=== PATIENT | female | born 1965 | race Caucasian/White ===

== ENCOUNTER → 2017-10-03 | Outpatient (CLI) | payer BC | LOC: M PAIN 09:30 | DX: M79.1 Myalgia (principal); M54.2 Cervicalgia; E03.9 Hypothyroidism, unspecified; G25.81 Restless legs syndrome; Z79.899 Other long term (current) drug therapy; Z88.5 Allergy status to narcotic agent | CPT/HCPCS: G0463 ==

== ENCOUNTER 2018-06-24 09:36 | Day surgery (SDC) | payer BC ==
[~2018-06-24 09:36] MED LIST: ACETAMINOPHEN 325 MG TAB PO; MIDAZOLAM INJ 2 MG/2 ML VIAL (J2250) As Ordered; PHENYLEPHRINE HCL 10 % OPHTH. SOL 5ML OD; fentaNYL 100 MCG/2 ML INJECTION (J3010) As Ordered
[2018-06-24] MEDS: OFLOXACIN 0.3 % (OCUFLOX) OPTH SOL 5ML OD (10:18)
[2018-06-24] MEDS: TROPICAMIDE 1% OPHTH SOLN 2ML OD (10:18)
[2018-06-24] MEDS: PHENYLEPHRINE 2.5% OPHTH SOL 2ML OD (10:19)
[2018-06-24] MEDS: LIDOCAINE 3.5 % 1ML OPHTH TOPICAL GEL OU (10:19)
[2018-06-24] MEDS: CYCLOPENTOLATE 2% OPHTH SOLN 2ML BTL OD (10:19)
[2018-06-24] MEDS: POVIDONE-IODINE 5% OPHTH PREP SOL 30ML As Ordered (11:27)
[2018-06-24] MEDS: MOXIFLOXACIN IN BSS 0.25MG/0.25ML INTRACAMERAL INJ (OR EYE ONLY)(J2280) As Ordered (11:27)
[2018-06-24] MEDS: TRIAMCINOLONE PRES FR 40 MG/ML 1ML(TRIESENCE)(OR EYE ONLY)(J3300 PER 1MG) As Ordered (11:27)
[2018-06-24] MEDS: HEALON DUET (HEALON 10MG/ML 0.55ML & HEALON ENDOCOAT 30MG/ML 0.85ML) As Ordered (11:27)
[2018-06-24] MEDS: LIDOCAINE 1% SDV 5 ML VIAL As Ordered (11:27)
[2018-06-24] MEDS: BSS with VANC/TOB/EPI for EYE CASES IR (11:28)
[2018-06-24] MEDS ORDERED: TRIMETHOBENZAMIDE 300 MG CAP PO (12:15)
[2018-06-24] MEDS ORDERED: AcetaZOLAMIDE 500 MG ER CAP PO (12:15)
[2018-06-24] MEDS ORDERED: ACETAMINOPHEN TAB 650MG DOSE (2X325MG) PO (12:15)
== END 2018-06-24 12:15 | disposition home or self-care (01) ==
LOC: M SDC 09:36
DX: H26.9 Unspecified cataract (principal); E03.9 Hypothyroidism, unspecified; K21.9 Gastro-esophageal reflux disease without esophagitis; Z79.899 Other long term (current) drug therapy
CPT/HCPCS: 66984

== ENCOUNTER → 2020-02-27 | Outpatient (REF) | payer BC ==
[~2020-02-27] MED LIST changes: +ACET1TAB55 PO; -ACETAMINOPHEN 325 MG TAB PO; +CLON-383 PO; +LEVO75TA4 PO; -MIDAZOLAM INJ 2 MG/2 ML VIAL (J2250) As Ordered; +MOBI15TA PO; -PHENYLEPHRINE HCL 10 % OPHTH. SOL 5ML OD; +REQU1TAB16 PO; +SERT-138 PO; +SKEL800T97 PO; +ZANT300T9 PO; +ZYRTTAB8 PO; -fentaNYL 100 MCG/2 ML INJECTION (J3010) As Ordered
[2020-02-27 18:06] LABS: RHEUMATOID FACTOR QUANT < 10.0 IU/ML (<15.0)
[2020-03-05 10:08] LABS: ANGIOTENSIN 1 CONVERTING ENZYM 40 U/L (14-82); ANTI JO-1 ANTIBODIES <0.2 AI (0.0-0.9); ANTI-GLOMERULAR BASEMENT MEMB 2 units (0-20); ANTI-SMOOTH MUSCLE ANTIBODY 46 Units (0-19); ASPERGILLUS FUMIGATUS AB Negative (Negative); AUREOBASIDIUM PULLULANS Negative (Negative); CYCLIC CITRULLINATED PEPTIDE 4 units (0-19); MICROPOLYSPORA FAENI AB Negative (Negative); PIGEON SERUM AB Negative (Negative); SSA SJOGRENS A <0.2 AI (0.0-0.9); SSB SJOGRENS B <0.2 AI (0.0-0.9); THERMOACTINOMYCES SACCHARI Negative (Negative); THERMOACTINOMYCES VULGARIS Negative (Negative)
== END ==
LOC: M LAB REF 17:32
PROVIDERS: ATTEND Internal Medicine Pulmonary Disease
DX: R91.8 Other nonspecific abnormal finding of lung field (principal)

== ENCOUNTER → 2020-05-20 | Outpatient (CLI) | payer BC ==
[~2020-05-20] MED LIST changes: +CETI10CA13 PO; +ESTR0.059; +OMEP1CAP73 PO; +ROPI1TAB3 PO; +SYMB16INH INH; +VENTAER INH; +ZOLO100T
--- NOTE | 2020-05-27 14:29 | REP ---
NONCONTRAST CHEST CT CLINICAL: Follow-up abnormal lung findings. TECHNIQUE: Axial noncontrast images from the thoracic inlet to the upper abdomen with coronal and sagittal reformations. COMPARISON: None. FINDINGS: There is a nodular area of consolidation in the basilar right upper lobe measuring 3.6 cm in maximal diameter along with a smaller area of airspace disease in the anterior right upper lobe, and even smaller areas of opacity in the lingula and left lower lobe. Small subpleural opacities also appreciated in the posterior right apex. No effusion. No pneumothorax. Tracheobronchial tree is patent. No obvious adenopathy noted. Further evaluation of the mediastinum demonstrates normal thoracic aorta, pulmonary vasculature, and heart/pericardium. Thyroid gland appears normal. Surrounding musculoskeletal structures are intact. Normal bilateral adrenal glands identified. IMPRESSION: Areas of consolidation primarily noted in the basilar right upper lobe and left lower lobe with smaller areas as described above. No associated effusion or adenopathy. No prior examinations are available for comparison. Consider three month short term followup for reevaluation. TESSY
== END ==
LOC: M RAD 09:51
PROVIDERS: ATTEND Internal Medicine Pulmonary Disease
DX: R91.8 Other nonspecific abnormal finding of lung field (principal)

== ENCOUNTER → 2020-06-15 | Outpatient (REF) | payer BC ==
[2020-06-15 17:18] LABS: BASO # 0.1 10^3/uL (0.0-0.2); BASO % 0.7 % (0.0-1.0); EOS # 0.2 10^3/uL (0.0-0.5); EOS % 2.9 % (0.0-3.0); HEMATOCRIT 43.1 % (36.0-47.0); HEMOGLOBIN 13.8 g/dl (12.0-15.5); LYMPH # 1.8 10^3/uL (1.5-5.0); LYMPH % 21.4 % (24.0-44.0); MEAN CORPUSCULAR HEMOGLOBIN 29.3 pg (27.0-33.0); MEAN CORPUSCULAR VOLUME 91.5 fl (80.0-96.0); MONO # 0.5 10^3/uL (0.0-0.8); MONO % 6.6 % (0.0-5.0); NEUTROPHILS # 5.5 10^3/uL (1.5-8.5); NEUTROPHILS % 67.8 % (36.0-66.0); PLATELET COUNT, AUTOMATED 321 10^3/uL (150-450); RED BLOOD COUNT 4.71 10^6/uL (4.00-5.40); WHITE BLOOD COUNT 8.2 10^3/uL (4.0-10.0)
[2020-06-15 17:32] LABS: INR 0.82; PROTHROMBIN TIME 11.4 SECONDS (12.5-14.3)
[2020-06-15 17:33] LABS: PARTIAL THROMBOPLASTIN TIME 29.9 SECONDS (24.2-38.5)
[2020-06-15 19:31] LABS: BLOOD UREA NITROGEN 11 MG/DL (7-18); CALCIUM LEVEL 9.9 MG/DL (8.5-10.1); CARBON DIOXIDE LEVEL 27 MEQ/L (21-32); CHLORIDE LEVEL 104 MEQ/L (98-107); CREATININE FOR GFR 0.74 MG/DL (0.55-1.30); GLOMERULAR FILTRATION RATE > 60.0 (>51); GLUCOSE, FASTING 84 MG/DL (70-100); POTASSIUM SERUM 4.4 MEQ/L (3.5-5.1); SODIUM LEVEL 137 MEQ/L (136-145)
[2020-07-09 00:07] LABS: ASPERGILLUS FLAVUS ABY Negative (Neg:<1:1); ASPERGILLUS FUMIGATUS ABY Negative (Neg:<1:1); ASPERGILLUS NIGER ABY Negative (Neg:<1:1); BLASTOMYCES ANTIBODY LEVEL Negative (Neg:<1:1); CRYPTOCOCCUS ANTIGEN SER Negative (Negative)
== END ==
LOC: M LAB REF 16:59
PROVIDERS: ATTEND Internal Medicine Pulmonary Disease
DX: R91.8 Other nonspecific abnormal finding of lung field (principal)

== ENCOUNTER → 2020-06-25 | Outpatient (CLI) | payer BC | LOC: M LABSMTC 14:19 | PROVIDERS: ATTEND Anesthesiology | DX: Z01.812 Encounter for preprocedural laboratory examination (principal); Z20.828 Contact with and (suspected) exposure to other viral communicable diseases | CPT/HCPCS: C9803; U0003 ==

== ENCOUNTER 2020-06-30 06:30 | Day surgery (SDC) | payer BC ==
[~2020-06-30] VITALS: Ht 154.9 cm; Wt 70.8 kg
[~2020-06-30 06:30] MED LIST changes: +ALBUTEROL SULFATE 2.5 MG/0.5 ML INH NEB SOLN INH ONE; -ESTR0.059; +LIDOCAINE 1% MDV 20ML VIAL SQ PRN; +LIDOCAINE 4% INJ 5ML AMP NEB ONE; +LR 1,000 ML IV ONE; -ZOLO100T
[2020-06-30] MEDS ORDERED: MIDAZOLAM INJ 2MG/2ML VIAL (J2250 PER 1MG) As Ordered ONE (06:52)
[2020-06-30] MEDS ORDERED: dexameTHASONE 4 MG/ML 1ML VIAL (J1100 PER 1MG) As Ordered ONE (06:53)
[2020-06-30] MEDS ORDERED: LIDOCAINE 2% 100MG/5ML SDV (FOR ANES.) As Ordered ONE (06:53)
[2020-06-30] MEDS ORDERED: propofoL 200 MG/20 ML VIAL As Ordered ONE (06:53)
[2020-06-30] MEDS ORDERED: SUGAMMADEX SODIUM 500 MG/5 ML VIAL (BRIDION) As Ordered ONE (06:53)
[2020-06-30] MEDS ORDERED: fentaNYL 100 MCG/2 ML INJECTION (J3010) As Ordered ONE (06:53)
[2020-06-30] MEDS ORDERED: ONDANSETRON 4MG/2ML VIAL As Ordered ONE (06:53)
[2020-06-30] MEDS ORDERED: ROCURONIUM BROMIDE 50 MG/5 ML VIAL As Ordered ONE ×2 (06:53→08:40)
[2020-06-30] MEDS ORDERED: ZOLO100T (06:59)
[2020-06-30] MEDS ORDERED: ESTR0.059 (06:59)
[2020-06-30] MEDS ORDERED: THROMBIN SOLN 5,000 UNITS VIAL As Ordered ONE (07:20)
[2020-06-30] MEDS ORDERED: EPINEPHrine 1MG/10ML SYRINGE 1.5IN As Ordered ONE (07:20)
[2020-06-30] MEDS ORDERED: CETACAINE SPRAY 5GM As Ordered ONE (07:20)
[2020-06-30] MEDS ORDERED: LIDOCAINE 1% SDV 30ML VIAL As Ordered ONE (07:21)
[2020-06-30] MEDS ORDERED: ePHEDrine SULFATE 25 MG/5 ML(5MG/ML) SYRINGE As Ordered ONE (07:56)
[2020-06-30] MEDS ORDERED: ACETAMINOPHEN 1000MG 100ML IV BTL (OFIRMEV) (J0131 PER 10MG) As Ordered ONE (08:07)
[2020-06-30] MEDS ORDERED: GLYCOPYRROLATE INJ 0.2 MG/ML 2 ML VIAL As Ordered ONE (08:17)
[2020-06-30] MEDS ORDERED: ONDANSETRON 4MG/2ML VIAL IV PRN (09:45)
[2020-06-30] MEDS ORDERED: fentaNYL 100 MCG/2 ML INJECTION (J3010) IV PRN (09:45)
[2020-06-30] MEDS ORDERED: MEPERIDINE INJ 25 MG/ML VIAL (J2175) IV PRN (09:45)
[2020-06-30] MEDS ORDERED: oxyCODONE 5MG TAB PO PRN (09:45)
[2020-06-30] MEDS ORDERED: METOCLOPRAMIDE INJ 10MG/2ML VIAL (J2765 PER 1) IV PRN (09:45)
[2020-06-30] MEDS ORDERED: LR 1,000 ML IV SCH (09:45)
[2020-06-30 10:56] VITALS: BP 126/77
[2020-06-30 11:53] LABS: APPEARANCE CLOUDY (CLEAR); COLOR PINK (COLORLESS); SOURCE LEFT LOWER LOBE
--- NOTE | 2020-06-30 12:18 | ROOR ---
Patient Name: Emiliana Beckwith Procedure Date: 06/30/2020 7:22 AM Date of : 1965 Admit Type: Outpatient Age: 54 Room: Main OR Note Status: Finalized Attending MD: Jennifer Lora MD Procedure: Bronchoscopy Indications: Suspicious left lower lobe lesion, Suspicious right upper lobe lesion Providers: Jennifer Lora MD (Doctor), Dion Bowles DO (1st Assisting Doctor) Referring MD: 1. No Referring Physician 1. No Referring Physician, Admin. (Referring MD) Requesting Physician: Medicines: General Anesthesia, Lidocaine 4% via nebulizer with Albuterol 2.5 mg, Cetacaine topical Complications: No immediate complications. Estimated blood loss: Minimal Procedure: Pre-Anesthesia Assessment: - Prior to the procedure, a History and Physical was performed, and patient medications and allergies were reviewed. The patient's tolerance of previous anesthesia was also reviewed. The risks and benefits of the procedure and the sedation options and risks were discussed with the patient. All questions were answered, and informed consent was obtained. Prior Anticoagulants: The patient has taken no previous anticoagulant or antiplatelet agents. ASA Grade Assessment: II - A patient with mild systemic disease. After reviewing the risks and benefits, the patient was deemed in satisfactory condition to undergo the procedure. - Patient identification and proposed procedure were verified prior to the procedure by the physician, the nurse and the journeyman machinist. The procedure was verified in the procedure room. The Bronchoscope was introduced through the mouth, via the endotracheal tube (the patient was intubated for the procedure) and advanced to the tracheobronchial tree of both lungs. The procedure was accomplished without difficulty. The patient tolerated the procedure well. Findings: The endotracheal tube is in good position. The visualized portion of the trachea is of normal caliber. The corby was mildly widened. The tracheobronchial tree was examined to at least the first subsegmental level. Bronchial mucosa and anatomy was normal; there was anatomic variant in left upper lobe segmental bronchi. There were no endobronchial lesions, and only scant secretions. Bronchial mucosa with some pitting and webbing throughout [place] robotic Electromagnetic navigation bronchoscopy was performed. The CT scan was used for planning purposes. A virtual bronchoscopic image was generated using the planning software. The targets in the posterior segment of the right upper lobe and in the posterior basal segment of the left lower lobe were marked and pathways were created. After a complete airway exam, the [place] robotic electromagnetic navigation phase was then begun to locate the target lesion(s). Positioning centrally (in relation to the lesion) was confirmed using the Olympus radial probe US catheter in the right upper lobe and in the left upper lobe. Transbronchial biopsies of an area of infiltration were performed in the posterior segment of the right upper lobe and in the posterior basal segment of the left lower lobe using forceps and sent for histopathology examination. The procedure was guided by fluoroscopy. Transbronchial biopsy technique was selected because the sampling site was not visible endoscopically. Bronchoalveolar lavage was performed in the left lower lobe and in the right upper lobe of the lung and sent for cell count, bacterial culture, and fungal & AFB analysis and cytology. The return was blood-tinged. An endobronchial ultrasound endoscope was utilized in order to assist with fine needle aspiration in the subcarinal area. Transbronchial needle aspirations of a lymph node were performed in the subcarinal area using an Olympus EBUS-TBNA 21 gauge needle and sent for routine cytology. The procedure was guided by ultrasound. Transbronchial needle aspiration technique was selected because the sampling site was not visible endoscopically. Estimated blood loss: minimal. Impression: - Suspicious left lower lobe lesion - Suspicious right upper lobe lesion - The airway examination was normal. - Electromagnetic navigation bronchoscopy was performed. - Transbronchial lung biopsies were performed. - Bronchoalveolar lavage was performed. - Endobronchial ultrasound was performed. - A transbronchial needle aspiration was performed. Recommendation: - Await test results. Attending Participation: I personally performed the entire procedure. Jennifer Lora MD 06/30/2020 12:18:07 PM Dion Bowles, DO Number of Addenda: 0 Note Initiated On: 06/30/2020 7:22 AM
[2020-06-30 13:58] LABS: COLOR PINK (COLORLESS); SOURCE RIGHT UPPER LOBE
[2020-06-30 14:01] LABS: APPEARANCE TURBID (CLEAR)
[2020-07-01 14:02] LABS: MONOCYTES/MACROPHAGES, BAL 10 %
[2020-07-01 14:04] LABS: MONOCYTES/MACROPHAGES, BAL 50 %
--- NOTE | 2020-07-05 09:07 | REP ---
FLUORSCOPIC GUIDED STUDY: 06/30/20. CLINICAL: Bronchoscopy for abnormal x-ray findings. TECHNIQUE: Intraoperative fluoroscopic imaging using portable C-ARM technique. FINDINGS: Two captured images demonstrate bilateral bronchoscopy. Total fluoroscopic time 3 minutes 43 seconds. IMPRESSION: Status post bronchoscopy. MTDD
--- NOTE | 2020-07-05 09:08 | REP ---
PORTABLE CHEST XRAY: 06/30/20 CLINICAL: Preoperative assessment. FINDINGS: The mediastinum and cardiac silhouette normal. Loop recorder identified. The lung zepeda demonstrate mildly increased interstitial marking bilaterally. There is an area of opacity in the basilar right upper lobe. No pneumothorax or effusion. Skeletal structures intact. Evidence for prior cholecystectomy noted. IMPRESSION: 1. Mildly increased vascular and interstitial markings. 2. Area of opacity in the basilar right upper lobe. 3. No pneumothorax. MTDD
== END 2020-06-30 10:57 | disposition home or self-care (01) ==
LOC: M SDC 06:30
PROVIDERS: ATTEND Internal Medicine Pulmonary Disease
DX: R91.8 Other nonspecific abnormal finding of lung field (principal); J45.909 Unspecified asthma, uncomplicated; E78.5 Hyperlipidemia, unspecified; E03.9 Hypothyroidism, unspecified; R73.03 Prediabetes; K58.8 Other irritable bowel syndrome; K21.9 Gastro-esophageal reflux disease without esophagitis; L40.9 Psoriasis, unspecified; F32.9 Major depressive disorder, single episode, unspecified; Z88.5 Allergy status to narcotic agent; Z79.899 Other long term (current) drug therapy; F12.10 Cannabis abuse, uncomplicated; M54.5 Low back pain
CPT/HCPCS: 31624; 31627; 31628; 31629; 31652; 71045; 76000; 87070; 87102; 87116; 87205; 87206; 88108; 88173; 88305; 88313; 88341; 88342; 89051; J0131; J1100; J2250; J2405; J3010; S2900

== ENCOUNTER → 2020-08-25 | Outpatient (CLI) | payer BC ==
[~2020-08-25] MED LIST changes: -ALBUTEROL SULFATE 2.5 MG/0.5 ML INH NEB SOLN INH ONE; +ESTR0.059; -LIDOCAINE 1% MDV 20ML VIAL SQ PRN; -LIDOCAINE 4% INJ 5ML AMP NEB ONE; -LR 1,000 ML IV ONE; +ZOLO100T
[2020-08-25 11:39] LABS: ALT/SGPT 54 U/L (12-78); BILIRUBIN,DIRECT < 0.1 MG/DL (0.0-0.2); BILIRUBIN,TOTAL 0.2 MG/DL (0.2-1.0); IRON (FE) 77 UG/DL (50-170); PERCENT SATURATION 21.2 % (13.2-45.0); TOTAL IRON BINDING CAPACITY 364 UG/DL (250-450); TOTAL PROTEIN 7.4 GM/DL (6.4-8.2)
[2020-08-25 12:00] LABS: HEPATITIS B SURFACE ANTIGEN NEGATIVE (NEGATIVE)
[2020-08-25 12:27] LABS: HEPATITIS B CORE ANTIBODY IGM NEGATIVE (NEGATIVE); HEPATITIS C VIRUS ABY INDEX < 0.0 INDEX (<0.8)
[2020-08-25 12:30] LABS: HEPATITIS A ANTIBODY IGM NEGATIVE (NEGATIVE)
[2020-08-27 17:08] LABS: ANTI-MITOCHONDRIAL ANTIBODY <20.0 Units (0.0-20.0); ANTINUCLEAR ANTIBODIES DIRECT Negative (Negative); LIVER-KIDNEY MICROSOMAL ABY <20.1 Units (0.0-20.0)
== END ==
LOC: M LAB 10:37
PROVIDERS: ATTEND Internal Medicine Gastroenterology
DX: Z11.59 Encounter for screening for other viral diseases (principal)

== ENCOUNTER → 2020-09-02 | Outpatient (REF) | payer BC | LOC: M LAB REF 15:54 | PROVIDERS: ATTEND Internal Medicine Gastroenterology | DX: K58.0 Irritable bowel syndrome with diarrhea (principal) ==

== ENCOUNTER → 2020-09-06 | Outpatient (CLI) | payer BC ==
[~2020-09-06] MED LIST changes: +GLUCAGON INJ 1MG VIAL As Ordered ONE; +ISOVUE-370 76% 100ML VIAL As Ordered ONE; +VoLumen 0.1% SUSPENSION 450ML BOTTLE As Ordered ONE
--- NOTE | 2020-09-06 13:03 | REP ---
INDICATION: CROHNS DISEASE COMPARISON: None. TECHNIQUE: Axial contrast-enhanced images from the lung bases to the pubic symphysis with images obtained in arterial and portal venous phases of enhancement. 100 cc Isovue 370 intravenous contrast material administered along with low-density oral contrast was administered prior to imaging. Coronal and sagittal reformations were obtained. FINDINGS: The enteric system including stomach, small, and large bowel are normal in appearance. Normal terminal ileum and cecum are identified in the right lower quadrant with evidence for prior appendectomy noted. No significant visible changes to the small or large bowel are identified to suggest underlying pathology. Liver, spleen, pancreas, bilateral adrenal glands and kidneys are normal. Evidence for prior cholecystectomy noted. Pelvis demonstrates normal bladder and evidence for prior hysterectomy. No ascites. No adenopathy. No free air. Atherosclerotic changes to the aorta and vasculature noted. Musculoskeletal structures demonstrate age-related changes without acute osseous abnormality. Lung bases ill-defined area of ground-glass opacity and interstitial changes at the left base which appear improved as compared to 05/20/2020. IMPRESSION: 1. Normal appearance to the enteric system. 2. No acute abdominopelvic pathology appreciated. 3. Ill-defined ground-glass density at the left base appears improved and decreased in size when compared to 05/20/2020 <Electronically signed by Jona Maldonado > 09/06/20 [id number]
== END ==
LOC: M RAD 10:23
PROVIDERS: ATTEND Internal Medicine Gastroenterology
DX: K52.9 Noninfective gastroenteritis and colitis, unspecified (principal)
CPT/HCPCS: 74177; J1610; Q9967

== ENCOUNTER → 2020-09-22 | Outpatient (CLI) | payer BC ==
[~2020-09-22] MED LIST changes: -GLUCAGON INJ 1MG VIAL As Ordered ONE; -ISOVUE-370 76% 100ML VIAL As Ordered ONE; -VoLumen 0.1% SUSPENSION 450ML BOTTLE As Ordered ONE
--- NOTE | 2020-09-22 10:42 | REP ---
INDICATION: CRYPTOGENIC ORGANIZING PNEUMONIA COMPARISON: 05/20/2020 TECHNIQUE: Axial noncontrast images from the thoracic inlet to the upper abdomen with coronal and sagittal reformations. This CT examination was performed using the following dose reduction techniques: Automated exposure control, adjustment of mA and/or kv according to the patient's size, and use of iterative reconstruction technique. FINDINGS: Previously identified areas of consolidation in the right upper lobe have resolved while the less confluent areas in the lingula and left lower lobe appear mildly improved. Small cavitary lesion in the medial right lower lobe measuring approximately 6 mm (series 201; image 50) remains stable. There is a small new 11 mm nodular density in the right lower lobe (series 201; image 81 which is nonspecific in appearance but likely represents small residual similar area of pathology. No further new consolidation, effusion or pneumothorax. Tracheobronchial tree is patent. No obvious significant adenopathy noted. Thoracic aorta, pulmonary vasculature and heart/pericardium appear normal. Surrounding musculoskeletal structures without acute osseous abnormality. Limited upper abdomen demonstrates normal bilateral adrenal glands and evidence for prior cholecystectomy. IMPRESSION: Findings appear relatively improved as compared with prior examination. However, there is a single new nodule in the right lower lobe which may warrant 6 month follow-up evaluation. <Electronically signed by Jona Maldonado > 09/22/20 [id number]
== END ==
LOC: M RAD 10:16
PROVIDERS: ATTEND Internal Medicine Pulmonary Disease
DX: J84.116 Cryptogenic organizing pneumonia (principal)

== ENCOUNTER → 2020-09-30 | Outpatient (REF) | payer BC | LOC: M LAB REF 11:29 | PROVIDERS: ATTEND Internal Medicine Gastroenterology | DX: Z01.89 Encounter for other specified special examinations (principal) ==

== ENCOUNTER → 2020-10-15 | Outpatient (CLI) | payer BC ==
[~2020-10-15] MED LIST changes: -ESTR0.059; +ESTR0.059 TOP
== END ==
LOC: M LABSMTC 10:49
PROVIDERS: ATTEND Anesthesiology
DX: Z01.812 Encounter for preprocedural laboratory examination (principal); Z20.828 Contact with and (suspected) exposure to other viral communicable diseases

== ENCOUNTER 2020-10-19 10:49 | Day surgery (SDC) | payer BC ==
[~2020-10-19] VITALS: Ht 154.9 cm; Wt 76.2 kg
[~2020-10-19 10:49] MED LIST changes: +LIDOCAINE 2% 100MG/5ML SDV (FOR ANES.) As Ordered ONE; +NS 1,000 ML IV ONE; +fentaNYL 100 MCG/2 ML INJECTION (J3010) As Ordered ONE; +propofoL 500 MG/50 ML VIAL As Ordered ONE
--- NOTE | 2020-10-19 12:45 | ROOR ---
Patient Name: Emiliana Beckwith Procedure Date: 10/19/2020 12:29 PM Date of : 1965 Age: 55 Room: [facility] Gender: Female Note Status: Finalized Procedure: Upper GI endoscopy Indications: Suspected irritable bowel syndrome, Endoscopy to assess diarrhea in patient suspected of having disease of the small-bowel Providers: George WEN MD Referring MD: Patricia Baltazar Np Requesting Provider: Medicines: Monitored Anesthesia Care Complications: No immediate complications. Procedure: Pre-Anesthesia Assessment: - The heart rate, respiratory rate, oxygen saturations, blood pressure, adequacy of pulmonary ventilation, and response to care were monitored throughout the procedure. The Endoscope was introduced through the mouth, and advanced to the second part of duodenum. The upper GI endoscopy was accomplished without difficulty. The patient tolerated the procedure well. Findings: Scattered mild inflammation characterized by linear erosions was found in the gastric body. Biopsies were taken with a cold forceps for histology. The exam of the stomach was otherwise normal. The examined esophagus was normal. The examined duodenum was normal. Biopsies for histology were taken with a cold forceps for evaluation of celiac disease. Impression: - A few scattered linear erosions in body/fundus of stomach/Gastritis. Biopsied. - Normal esophagus. - Normal examined duodenum. Biopsied. Recommendation: - Use Prilosec (omeprazole) 40 mg PO daily. - Telephone endoscopist for pathology results in 2 weeks. Procedure Code(s): --- Professional --- 29594, Esophagogastroduodenoscopy, flexible, transoral; with biopsy, single or multiple Diagnosis Code(s): --- Professional --- R19.7, Diarrhea, unspecified K29.70, Gastritis, unspecified, without bleeding CPT copyright 2019 [employer]. All rights reserved. The codes documented in this report are preliminary and upon licensed master social worker review may be revised to meet current compliance requirements. George Wen MD George WEN MD 10/19/2020 12:44:58 PM Electronically signed by George WEN MD Number of Addenda: 0 Note Initiated On: 10/19/2020 12:29 PM Estimated Blood Loss: Estimated blood loss: none.
--- NOTE | 2020-10-19 13:02 | ROOR ---
Patient Name: Emiliana Beckwith Procedure Date: 10/19/2020 12:30 PM Date of : 1965 Age: 55 Room: [facility] Gender: Female Note Status: Finalized Procedure: Colonoscopy Indications: Exclusion of colitis, Exclusion of Crohn's disease, Irritable bowel syndrome Providers: George WEN MD Referring MD: Patricia Baltazar Np Requesting Provider: Medicines: Monitored Anesthesia Care Complications: No immediate complications. Procedure: Pre-Anesthesia Assessment: - The heart rate, respiratory rate, oxygen saturations, blood pressure, adequacy of pulmonary ventilation, and response to care were monitored throughout the procedure. The Colonoscope was introduced through the anus and advanced to 10 cm into the ileum. The colonoscopy was performed without difficulty. The patient tolerated the procedure well. The quality of the bowel preparation was fair. Findings: Skin tags were found on perianal exam. The colon (entire examined portion) appeared normal. The terminal ileum appeared normal. Biopsies for histology were taken with a cold forceps from the entire colon for evaluation of microscopic colitis. Impression: - Preparation of the colon was fair. - Perianal skin tags found on perianal exam. - Small internal hemorrhoids. - The entire colon is otherwise normal. - The examined portion of the ileum was normal. - There is no evidence for IBD on this exam. Biopsies were taken with a cold forceps from the entire colon for evaluation of microscopic colitis. Recommendation: - Continue present medications. - Await pathology results. - Telephone endoscopist for pathology results in 2 weeks. Procedure Code(s): --- Professional --- 23482, Colonoscopy, flexible; with biopsy, single or multiple Diagnosis Code(s): --- Professional --- K64.4, Residual hemorrhoidal skin tags K58.9, Irritable bowel syndrome without diarrhea CPT copyright 2019 [employer]. All rights reserved. The codes documented in this report are preliminary and upon industrial hygenist review may be revised to meet current compliance requirements. George Wen MD George WEN MD 10/19/2020 1:02:09 PM Electronically signed by George WEN MD Number of Addenda: 0 Note Initiated On: 10/19/2020 12:30 PM Estimated Blood Loss: Estimated blood loss: none.
[2020-10-19 13:29] VITALS: BP 121/58
== END 2020-10-19 13:35 | disposition home or self-care (01) ==
LOC: M OPP 10:49
PROVIDERS: ATTEND Internal Medicine Gastroenterology
DX: K58.9 Irritable bowel syndrome, unspecified (principal); R19.7 Diarrhea, unspecified; D12.6 Benign neoplasm of colon, unspecified; K64.4 Residual hemorrhoidal skin tags; D13.1 Benign neoplasm of stomach; D13.2 Benign neoplasm of duodenum; K29.70 Gastritis, unspecified, without bleeding; E78.5 Hyperlipidemia, unspecified; E03.9 Hypothyroidism, unspecified; R73.03 Prediabetes; R12 Heartburn; M19.90 Unspecified osteoarthritis, unspecified site; L40.9 Psoriasis, unspecified; F32.9 Major depressive disorder, single episode, unspecified; J45.909 Unspecified asthma, uncomplicated; G93.5 Compression of brain; Z88.5 Allergy status to narcotic agent; Z79.899 Other long term (current) drug therapy; Z83.3 Family history of diabetes mellitus; Z82.49 Family history of ischemic heart disease and other diseases of the circulatory system; Z80.1 Family history of malignant neoplasm of trachea, bronchus and lung; Z80.8 Family history of malignant neoplasm of other organs or systems
CPT/HCPCS: 43239; 45380; 88305; J3010

== ENCOUNTER → 2021-04-18 | Outpatient (CLI) | payer BC ==
[~2021-04-18] MED LIST changes: -LIDOCAINE 2% 100MG/5ML SDV (FOR ANES.) As Ordered ONE; -NS 1,000 ML IV ONE; -fentaNYL 100 MCG/2 ML INJECTION (J3010) As Ordered ONE; -propofoL 500 MG/50 ML VIAL As Ordered ONE
--- NOTE | 2021-04-18 15:50 | REP ---
INDICATION: CRYPTOGENIC ORGANIZING PHEUMONIA COMPARISON: 09/22/2020 the latest prior also without contrast TECHNIQUE: Standard helical technique without intravenous contrast administration FINDINGS: The mediastinum and pulmonary bebeto are stable. There is no evidence of a mass or adenopathy. There is no change in appearance of the imaged upper abdomen or imaged osseous structures. They are again seen to be within normal limits. Evaluation of the lung zepeda shows increase in the size of the bilateral lower lung field asymmetric densities and in the lingular asymmetric density. There is no change in the nodule seen in the left lower lobe. The 1.1 cm sized solid appearing nodule in the right CP angle has resolved. The minimal reticulonodular density seen in the right middle lobe are unchanged. IMPRESSION: 1. Worsened bilateral lower lobe asymmetric densities. Question recurrent infectious etiology. Correlate clinically with appropriate follow-up. 2. Unchanged nodule right lower lobe with resolution of previous nodule in the right CP angle. 3. Unchanged subtle reticulonodular densities right middle lobe. 4. Stable biapical pleuroparenchymal scarring. 5. Increased lingular asymmetric density. <Electronically signed by Alton Moreno > 04/18/21 [id number]
== END ==
LOC: M PLAIMG 14:06
PROVIDERS: ATTEND Internal Medicine Pulmonary Disease
DX: J84.116 Cryptogenic organizing pneumonia (principal)

== ENCOUNTER → 2021-07-12 | Outpatient (CLI) | payer BC ==
--- NOTE | 2021-07-13 09:20 | REP ---
INDICATION: ABN FINDINGS OF LUNG WHITE COMPARISON: Multiple latest 04/18/2021 also without contrast TECHNIQUE: Standard helical technique without contrast FINDINGS: The mediastinum and pulmonary bebeto are unchanged. No mass or adenopathy has developed. There are no pleural or pericardial effusions. There is no significant change in the appearance of the imaged upper abdomen or imaged osseous structures. Evaluation of the lung white shows resolution of the previously present asymmetric opacity in the right lower lobe and improvement in the asymmetric opacity in the left lower lobe which is smaller and less dense. The well-demarcated nodule seen in the right lower lobe is unchanged. The small zone of reticulonodular densities in the right middle lobe has improved slightly. The lingular asymmetric density seen previously is smaller and less dense. No new abnormal nodules, masses, or opacities have developed. IMPRESSION: Improvement as described above. No new abnormalities. <Electronically signed by Alton Moreno > 07/13/21 0952
== END ==
LOC: M RAD 16:43
PROVIDERS: ATTEND Internal Medicine Pulmonary Disease
DX: R91.8 Other nonspecific abnormal finding of lung field (principal)

== ENCOUNTER → 2021-10-20 | Outpatient (CLI) | payer BC | LOC: M LABSMTC 10:03 | PROVIDERS: ATTEND Surgery | DX: Z11.52 Encounter for screening for COVID-19 (principal) ==

== ENCOUNTER → 2022-04-06 | Outpatient (CLI) | payer BC | LOC: M LABSMTC 09:11 | PROVIDERS: ATTEND Surgery | DX: Z20.822 Contact with and (suspected) exposure to COVID-19 (principal) ==

== ENCOUNTER → 2022-10-31 | Outpatient (REF) | payer BC ==
[2022-10-31 16:39] LABS: FERRITIN 15.2 NG/ML (7.3-270.7)
== END ==
LOC: M LAB REF 16:17
PROVIDERS: ATTEND Internal Medicine
DX: R53.83 Other fatigue (principal); G25.81 Restless legs syndrome; G60.9 Hereditary and idiopathic neuropathy, unspecified

== ENCOUNTER → 2025-08-18 | Outpatient (CLI) | payer BC ==
[~2025-08-18] MED LIST changes: -CLON-383 PO; +CLON-442 PO; -ROPI1TAB3 PO; +ROPI1TAB73 PO
== END ==
LOC: M PLARAD 14:09
PROVIDERS: ATTEND Nurse Practitioner Adult Health
DX: R91.8 Other nonspecific abnormal finding of lung field (principal)
CPT/HCPCS: 78815; A9552

== ENCOUNTER 2025-09-02 06:17 | Day surgery (SDC) | payer BC ==
[~2025-09-02] VITALS: Ht 154.9 cm; Wt 74.5 kg
[~2025-09-02 06:17] MED LIST changes: +META-10 PO; +ZOLO100T PO
[2025-09-02] MEDS: ALBUTEROL SULFATE 2.5 MG/0.5 ML INH CONCENTRATE NEB SOLN INH ONE (07:06)
[2025-09-02] MEDS: LIDOCAINE PRES-FREE 2% 10 ML AMP INH ONE (07:06)
[2025-09-02] MEDS: LR 1,000 ML IV SCH (07:06)
[2025-09-02] MEDS ORDERED: MIDAZOLAM INJ 2 MG/2 ML VIAL As Ordered ONE (07:12)
[2025-09-02] MEDS ORDERED: ONDANSETRON 4MG/2ML VIAL As Ordered ONE (07:13)
[2025-09-02] MEDS ORDERED: LIDOCAINE 2% 100 MG/5 ML SDV (FOR ANES.) As Ordered ONE (07:13)
[2025-09-02] MEDS ORDERED: ROCURONIUM BROMIDE 50MG/5ML VIAL As Ordered ONE (07:13)
[2025-09-02] MEDS: CETACAINE SPRAY 5 GM As Ordered ONE (07:54)
[2025-09-02] MEDS: EPINEPHrine 1 MG/10 ML SYRINGE 1.5IN As Ordered ONE (08:45)
[2025-09-02] MEDS: THROMBIN 5,000 UNITS VIAL As Ordered ONE (09:00)
[2025-09-02] MEDS ORDERED: SUGAMMADEX SODIUM 200 MG/2 ML VIAL As Ordered ONE (09:04)
[2025-09-02] MEDS ORDERED: ONDANSETRON 4MG/2ML VIAL IV PRN (09:25)
[2025-09-02 10:05] VITALS: TEMP 97.7
[2025-09-02 10:35] VITALS: BP 141/67; O2SAT 93
== END 2025-09-02 11:05 | disposition home or self-care (01) ==
LOC: M SDC 06:17
PROVIDERS: ATTEND Internal Medicine Pulmonary Disease
DX: C85.19 Unspecified B-cell lymphoma, extranodal and solid organ sites (principal); G47.30 Sleep apnea, unspecified; Z88.5 Allergy status to narcotic agent; Z79.899 Other long term (current) drug therapy
CPT/HCPCS: 31623; 31624; 31627; 31628; 31654; S2900

== ENCOUNTER 2025-09-02 13:16 | Inpatient (IN) | payer BC ==
[~2025-09-02] VITALS: Ht 154.9 cm; Wt 77.6 kg
[2025-09-02] MEDS: MORPHINE 4 MG/ML 1 ML VIAL IV ONE (13:50)
[2025-09-02] MEDS: ASPIRIN 81 MG CHEWABLE TABLET PO ONE (13:52)
[2025-09-02 14:18] LABS: BASO # 0.0 10^3/uL (0.0-0.2); BASO % 0.2 % (0.0-1.0); EOS # 0.0 10^3/uL (0.0-0.5); EOS % 0.1 % (0.0-3.0); LYMPH # 1.3 10^3/uL (1.5-5.0); LYMPH % 7.5 % (24.0-44.0); MONO # 0.7 10^3/uL (0.0-0.8); MONO % 4.3 % (2.0-8.0); NEUTROPHILS # 15.0 10^3/uL (1.5-8.5); NEUTROPHILS % 87.2 % (36.0-66.0); PLATELET COUNT, AUTOMATED 392 10^3/uL (150-450)
[2025-09-02 14:28] LABS: INR 0.91
[2025-09-02] MEDS: NITROGLYCERIN 0.4 MG SUBL TABLET SL STA (14:40)
[2025-09-02 14:42] LABS: CK-MB VALUE MASS 2.7 NG/ML (<3.6)
[2025-09-02 14:44] LABS: ALT/SGPT 35 U/L (7.0-40); AST/SGOT 24 U/L (<34); CALCIUM LEVEL 9.6 MG/DL (8.5-10.1); CARBON DIOXIDE LEVEL 25 MMOL/L (20-31); CHLORIDE LEVEL 105 MMOL/L (98-107); CPK CREATINE PHOSPHOKINASE 85 U/L (34-145); CREATININE FOR GFR 0.66 MG/DL (0.55-1.30); GLOMERULAR FILTRATION RATE > 90.0 (>51); MB/CK RELATIVE INDEX 3.17 (< OR =4); POTASSIUM SERUM 4.6 MMOL/L (3.5-5.1); SODIUM LEVEL 142 MMOL/L (136-145)
[2025-09-02] MEDS ORDERED: ISOVUE-370 76% 100 ML VIAL As Ordered ONE (15:02)
[2025-09-02 15:34] LABS: CK-MB VALUE MASS 2.0 NG/ML (<3.6); CPK CREATINE PHOSPHOKINASE 77 U/L (34-145); MB/CK RELATIVE INDEX 2.59 (< OR =4)
[2025-09-02] MEDS: NITROGLYCERIN 0.4 MG SUBL TABLET SL PRN (15:46)
[2025-09-02] MEDS ORDERED: HOME MED LIST COMPLETE! XX SCH (18:10)
[2025-09-02] MEDS: NS (Normal Saline) 0.9% 1,000 ML IV ONE (18:34)
[2025-09-02] MEDS: PERCOCET 5MG/325MG TAB PO PRN (19:08)
[2025-09-02] MEDS: IPRATROPIUM 0.5 MG/ALBUTEROL 2.5 MG INH SOL UD 3 ML NEB SCH (19:56)
[2025-09-02] MEDS: SYMBICORT 80/4.5MCG INHALER 6GM INH SCH (19:56)
[2025-09-02] MEDS: CETIRIZINE 10 MG TAB PO SCH (21:10)
[2025-09-02] MEDS: KETOROLAC 30 MG/ML 1 ML VIAL IV SCH (21:11)
[2025-09-02 21:43] VITALS: BP 142/64; TEMP 99.1; O2SAT 97
[2025-09-02] MEDS: MORPHINE 2 MG/ML 1 ML VIAL IV PRN (22:07)
[2025-09-02 22:47] VITALS: TEMP 100.7
[2025-09-02 23:23] VITALS: BP 110/52; TEMP 99.6; O2SAT 96
[2025-09-03] VITALS (7 sets, daily range): BP systolic 104–113; BP diastolic 53–58; TEMP 98–100.4; O2SAT 90–99
[2025-09-03] MEDS: LEVOTHYROXINE 75 MCG TABLET (0.075 MG) PO SCH (05:40)
[2025-09-03 06:34] LABS: PLATELET COUNT, AUTOMATED 259 10^3/uL (150-450)
[2025-09-03 06:44] LABS: CALCIUM LEVEL 8.2 MG/DL (8.5-10.1); CARBON DIOXIDE LEVEL 24.0 MMOL/L (20-31); CHLORIDE LEVEL 106.0 MMOL/L (98-107); CREATININE FOR GFR 0.89 MG/DL (0.55-1.30); GLOMERULAR FILTRATION RATE 74.6 (>51); POTASSIUM SERUM 4.2 MMOL/L (3.5-5.1); SODIUM LEVEL 141.0 MMOL/L (136-145)
[2025-09-03] MEDS: SERTRALINE 100 MG TAB PO SCH (08:45)
[2025-09-03] MEDS: ENOXAPARIN 40 MG/0.4 ML SYRINGE (J1650 PER 10MG) SC SCH (08:45)
[2025-09-03] MEDS ORDERED: MORPHINE 2 MG/ML 1 ML VIAL IV PRN (13:10)
[2025-09-03] MEDS: CYCLOBENZAPRINE 5 MG TABLET PO SCH (14:18)
[2025-09-03] MEDS: ACETAMINOPHEN 500 MG TAB PO SCH (16:29)
[2025-09-04] VITALS (8 sets, daily range): BP systolic 117–136; BP diastolic 58–65; TEMP 97.4–101.5; O2SAT 86–99
[2025-09-04 05:47] LABS: BASO # 0.0 10^3/uL (0.0-0.2); BASO % 0.3 % (0.0-1.0); EOS # 0.1 10^3/uL (0.0-0.5); EOS % 1.0 % (0.0-3.0); LYMPH # 0.4 10^3/uL (1.5-5.0); LYMPH % 4.4 % (24.0-44.0); MONO # 0.5 10^3/uL (0.0-0.8); MONO % 5.4 % (2.0-8.0); NEUTROPHILS # 8.2 10^3/uL (1.5-8.5); NEUTROPHILS % 88.5 % (36.0-66.0); PLATELET COUNT, AUTOMATED 217 10^3/uL (150-450)
[2025-09-04 05:58] LABS: CALCIUM LEVEL 8.7 MG/DL (8.5-10.1); CARBON DIOXIDE LEVEL 24.0 MMOL/L (20-31); CHLORIDE LEVEL 105.0 MMOL/L (98-107); CREATININE FOR GFR 0.86 MG/DL (0.55-1.30); GLOMERULAR FILTRATION RATE 77.8 (>51); POTASSIUM SERUM 4.0 MMOL/L (3.5-5.1); SODIUM LEVEL 140.0 MMOL/L (136-145)
[2025-09-04] MEDS ORDERED: MORPHINE 2 MG/ML 1 ML VIAL IV PRN (12:00)
[2025-09-04] MEDS: PANTOPRAZOLE 40MG VIAL IV SCH (12:31)
[2025-09-04] MEDS: ACETAMINOPHEN 325 MG TAB PO PRN (17:42)
[2025-09-04] MEDS: PIPERACILLIN/TAZOBACTAM SOD 3.375 GM in DEXTROSE 5% (D5W) ADV/MINI-BAG 50 ML IV SCH (17:42)
[2025-09-04] MEDS: DOXYCYCLINE HYCLATE 100 MG TABLET PO SCH (21:10)
[2025-09-05] VITALS (37 sets, daily range): BP systolic 125–190; BP diastolic 60–90; TEMP 98.7–102.2; O2SAT 88–99
[2025-09-05 06:03] LABS: PLATELET COUNT, AUTOMATED 252 10^3/uL (150-450)
[2025-09-05 06:29] LABS: CALCIUM LEVEL 8.5 MG/DL (8.5-10.1); CARBON DIOXIDE LEVEL 24.0 MMOL/L (20-31); CHLORIDE LEVEL 104.0 MMOL/L (98-107); CREATININE FOR GFR 0.9 MG/DL (0.55-1.30); GLOMERULAR FILTRATION RATE 73.6 (>51); POTASSIUM SERUM 4.0 MMOL/L (3.5-5.1); SODIUM LEVEL 138.0 MMOL/L (136-145)
[2025-09-05 06:35] LABS: ATYPICAL LYMPH 7 % (0-5); EOSINOPHILS 2 % (0-3); LYMPHOCYTES 3 % (16-44); MONOCYTES 4 % (0-5); NEUTROPHILS 81 % (28-66)
[2025-09-05 06:36] LABS: PLATELET ESTIMATE NORMAL (NORMAL)
[2025-09-05] MEDS: KETOROLAC 30 MG/ML 1 ML VIAL IV SCH (12:55)
[2025-09-05] MEDS: hydrALAZINE 20 MG/ML 1 ML VIAL IV PRN (12:56)
[2025-09-06] VITALS (21 sets, daily range): BP systolic 124–170; BP diastolic 54–84; TEMP 98.9–101.6; O2SAT 82–99
[2025-09-06 08:03] LABS: BASO # 0.0 10^3/uL (0.0-0.2); BASO % 0.4 % (0.0-1.0); EOS # 0.2 10^3/uL (0.0-0.5); EOS % 2.2 % (0.0-3.0); LYMPH # 0.6 10^3/uL (1.5-5.0); LYMPH % 6.9 % (24.0-44.0); MONO # 0.7 10^3/uL (0.0-0.8); MONO % 8.0 % (2.0-8.0); NEUTROPHILS # 6.6 10^3/uL (1.5-8.5); NEUTROPHILS % 81.4 % (36.0-66.0); PLATELET COUNT, AUTOMATED 305 10^3/uL (150-450)
[2025-09-06 08:32] LABS: CALCIUM LEVEL 8.6 MG/DL (8.5-10.1); CARBON DIOXIDE LEVEL 22.0 MMOL/L (20-31); CHLORIDE LEVEL 104.0 MMOL/L (98-107); CREATININE FOR GFR 0.8 MG/DL (0.55-1.30); GLOMERULAR FILTRATION RATE 84.8 (>51); POTASSIUM SERUM 3.8 MMOL/L (3.5-5.1); SODIUM LEVEL 137.0 MMOL/L (136-145)
[2025-09-07] VITALS (13 sets, daily range): BP systolic 138–163; BP diastolic 62–77; TEMP 97.9–101.7; O2SAT 94–98
[2025-09-07 05:52] LABS: BASO # 0.0 10^3/uL (0.0-0.2); BASO % 0.6 % (0.0-1.0); EOS # 0.2 10^3/uL (0.0-0.5); EOS % 2.8 % (0.0-3.0); LYMPH # 0.6 10^3/uL (1.5-5.0); LYMPH % 9.4 % (24.0-44.0); MONO # 0.8 10^3/uL (0.0-0.8); MONO % 12.1 % (2.0-8.0); NEUTROPHILS # 4.7 10^3/uL (1.5-8.5); NEUTROPHILS % 72.3 % (36.0-66.0); PLATELET COUNT, AUTOMATED 280 10^3/uL (150-450)
[2025-09-07 06:18] LABS: CALCIUM LEVEL 8.7 MG/DL (8.5-10.1); CARBON DIOXIDE LEVEL 23.0 MMOL/L (20-31); CHLORIDE LEVEL 108.0 MMOL/L (98-107); CREATININE FOR GFR 0.83 MG/DL (0.55-1.30); GLOMERULAR FILTRATION RATE 81.2 (>51); POTASSIUM SERUM 3.7 MMOL/L (3.5-5.1); SODIUM LEVEL 141.0 MMOL/L (136-145)
[2025-09-07 07:20] LABS: ALT/SGPT 37.0 U/L (7.0-40); AST/SGOT 41.0 U/L (<34)
[2025-09-07] MEDS: ACETAMINOPHEN 500 MG TAB PO SCH (09:00)
[2025-09-07] MEDS ORDERED: KETOROLAC 30 MG/ML 1 ML VIAL IV PRN (10:05)
[2025-09-07] MEDS ORDERED: E-Z-HD 98% w/w 340 GM SUSP BTL As Ordered ONE (10:40)
[2025-09-07] MEDS ORDERED: E-Z-PAQUE 96% w/w SUSP 176 GM BTL As Ordered ONE (10:40)
[2025-09-07] MEDS ORDERED: E-Z-GAS II EFFERVESCENT PACKET (SODIUM BICARB./CITRIC ACID/SIMETHICONE) As Ordered ONE (10:40)
[2025-09-07] MEDS: D5W/0.45% SODIUM CHLORIDE 1,000 ML IV SCH (14:14)
[2025-09-07] MEDS: FLUCONAZOLE 400 MG in IV 1 EA IV SCH (15:43)
[2025-09-07] MEDS: ACETAMINOPHEN *IV* 1,000 MG in IV 1 EA IV PRN (17:06)
[2025-09-07] MEDS: FAT EMULSION IV 250 ML IV ONE (17:48)
[2025-09-07] MEDS: AMINO AC/ELECTROLYTE/DEX/CALC 1,000 ML IV SCH (17:48)
[2025-09-07] MEDS: INSULIN LISPRO (NovoLOG) PER UNIT SC SCH (17:54)
[2025-09-07] MEDS: MEROPENEM 1 GM in IV 1 EA IV SCH (17:54)
[2025-09-07] MEDS: PANTOPRAZOLE 40MG VIAL IV SCH (20:18)
[2025-09-08] VITALS (13 sets, daily range): BP systolic 150–168; BP diastolic 56–81; TEMP 99.4–101.7; O2SAT 93–96
[2025-09-08 05:29] LABS: BASO # 0.1 10^3/uL (0.0-0.2); BASO % 0.6 % (0.0-1.0); EOS # 0.3 10^3/uL (0.0-0.5); EOS % 3.3 % (0.0-3.0); LYMPH # 0.8 10^3/uL (1.5-5.0); LYMPH % 9.9 % (24.0-44.0); MONO # 0.8 10^3/uL (0.0-0.8); MONO % 10.7 % (2.0-8.0); NEUTROPHILS # 5.5 10^3/uL (1.5-8.5); NEUTROPHILS % 70.5 % (36.0-66.0); PLATELET COUNT, AUTOMATED 333 10^3/uL (150-450)
[2025-09-08 05:54] LABS: ALT/SGPT 40 U/L (7.0-40); AST/SGOT 39 U/L (<34); CALCIUM LEVEL 8.2 MG/DL (8.5-10.1); CARBON DIOXIDE LEVEL 25 MMOL/L (20-31); CHLORIDE LEVEL 103 MMOL/L (98-107); CREATININE FOR GFR 0.67 MG/DL (0.55-1.30); GLOMERULAR FILTRATION RATE > 90.0 (>51); POTASSIUM SERUM 3.6 MMOL/L (3.5-5.1); SODIUM LEVEL 138 MMOL/L (136-145)
[2025-09-08] MEDS: LEVOTHYROXINE 100 MCG (0.1 MG) 5ML SDV PF (SOLUTION FORM) IV SCH (06:04)
[2025-09-08] MEDS ORDERED: INSUHUMDS SC (14:12)
[2025-09-08] MEDS ORDERED: PROT40IN4 IV (14:12)
[2025-09-08] MEDS ORDERED: HYDR20VI2 IV (14:12)
[2025-09-08] MEDS ORDERED: [UNRECOGNIZED DRUG - CODE] IV (14:12)
[2025-09-08] MEDS ORDERED: LEVO100V IV (14:12)
[2025-09-08] MEDS ORDERED: MERO1VIA3 IV (14:12)
[2025-09-08] MEDS ORDERED: MORP2INJ4 IV (14:12)
[2025-09-08] MEDS: INSULIN LISPRO (NovoLOG) PER UNIT SC SCH (18:00)
[2025-09-08] MEDS: AMINO AC/ELECTROLYTE/DEX/CALC 2,000 ML IV SCH (18:20)
[2025-09-08] MEDS: FAT EMULSION IV 250 ML IV ONE (18:20)
== END 2025-09-08 19:56 | disposition short-term general hospital (02) | DRG 143 ==
LOC: M ED 13:16 → M ED INP 18:03 → M PCU 21:40
PROVIDERS: ADMIT Internal Medicine; ATTEND Internal Medicine
PROC: 02H633Z Insertion of Infusion Device into Right Atrium, Percutaneous Approach (ICD-10-PCS; principal; 2025-09-08)
DX: J95.89 Other postprocedural complications and disorders of respiratory system, not elsewhere classified (principal); K22.3 Perforation of esophagus; J18.9 Pneumonia, unspecified organism; J98.2 Interstitial emphysema; C85.90 Non-Hodgkin lymphoma, unspecified, unspecified site; J90 Pleural effusion, not elsewhere classified; F32.A Depression, unspecified; R13.10 Dysphagia, unspecified; J44.0 Chronic obstructive pulmonary disease with (acute) lower respiratory infection; R91.8 Other nonspecific abnormal finding of lung field; E03.9 Hypothyroidism, unspecified; J45.909 Unspecified asthma, uncomplicated; G89.29 Other chronic pain; M54.9 Dorsalgia, unspecified; M62.830 Muscle spasm of back; G25.81 Restless legs syndrome; R09.02 Hypoxemia; J98.11 Atelectasis; K58.2 Mixed irritable bowel syndrome; G47.30 Sleep apnea, unspecified; Z79.890 Hormone replacement therapy; Z79.899 Other long term (current) drug therapy; Z88.5 Allergy status to narcotic agent